=== PATIENT | male | born 1955 | race Caucasian/White ===

== ENCOUNTER 2019-06-04 08:58 | Day surgery (SDC) | payer BC ==
[2019-05-31 15:08] VITALS: BMI 30.4
[~2019-06-04 08:58] MED LIST: LACTATED RINGERS 1,000 ML IV SCH
[2019-06-04 09:15] VITALS: TEMP 98.3
[2019-06-04] MEDS ORDERED: LIDOCAINE 1% 20 ML VIAL (10MG/ML) FOR IV START INTRADERMA ONE (09:17)
[2019-06-04] MEDS ORDERED: PROPOFOL 10 MG/ML 20 ML VIAL IV ONE (09:59)
--- NOTE | 2019-06-04 10:18 | P.PCN ---
Date of Procedure: 06/04/19 Procedure(s) Performed: BRIEF HISTORY: Patient is a 64-year-old pleasant white male, scheduled for an elective colonoscopy as a part of evaluation of Hemoccult-positive stool and family history of colon cancer. Father was diagnosed with colon cancer at age 72. PROCEDURE PERFORMED: Colonoscopy. PREOPERATIVE DIAGNOSIS: Screening for colon cancer/family history of colon cancer. IV sedation per Anesthesia. PROCEDURE: After informed consent was obtained, the patient, was brought into the endoscopy unit. IV sedation was administered by Anesthesia under continuous monitoring. Digital rectal examination was normal. Initially the Olympus CF-160 flexible video colonoscope was then inserted in the rectum, gradually advanced into the cecum without any difficulty. Careful examination was performed as the scope was gradually being withdrawn. Ileocecal valve and the appendiceal orifice were visualized and appeared normal. Prep was excellent. Mucosa of the cecum, ascending colon, transverse colon, descending colon, sigmoid colon, and rectum appeared normal. Retroflexion was performed in the rectum and no lesions were seen. The patient tolerated the procedure well. IMPRESSION: Normal-appearing colon from rectum to cecum with no evidence of colorectal neoplasia Scattered sigmoid diverticulosis . RECOMMENDATIONS: Findings of this examination were discussed with the patient as well as his family. He was advised to have a repeat screening colonoscopy every 5 years because of the family history of colon cancer..
[2019-06-04 10:51] VITALS: BP 144/94; PULSE 63; RESP 18
== END 2019-06-04 11:00 | disposition home or self-care (01) ==
LOC: ORWHC2ENDO 08:58
PROVIDERS: ATTEND Internal Medicine Gastroenterology
DX: Z12.11 Encounter for screening for malignant neoplasm of colon (principal); Z80.0 Family history of malignant neoplasm of digestive organs; K57.30 Diverticulosis of large intestine without perforation or abscess without bleeding
CPT/HCPCS: J2704; G0105

== ENCOUNTER → 2020-04-10 | Outpatient (CLI) | payer BC ==
--- NOTE | 2020-04-10 13:04 | XR ---
EXAMINATION TYPE: XR finger RT DATE OF EXAM: 04/10/2020 COMPARISON: NONE HISTORY: Right index finger injury 6 days ago TECHNIQUE: 2 views of the right index finger were obtained FINDINGS: There is diffuse circumferential soft tissue swelling of the right index finger without oss eous laceration. Dorsal osseous pleural fluid change is seen of the proximal and distal interphalange al joints. No suspicious radiopaque foreign body identified. No acute fracture seen. IMPRESSION: Circumferential soft tissue swelling of the second digit and mild degenerative change of the dorsal distal and proximal interphalangeal joints. No osseous laceration or acute fracture.
== END | disposition home or self-care (01) ==
LOC: RADXRYALE 11:22
PROVIDERS: ATTEND Family Medicine
DX: M79.89 Other specified soft tissue disorders (principal); M19.041 Primary osteoarthritis, right hand

== ENCOUNTER → 2022-05-10 | Outpatient (CLI) | payer BC ==
--- NOTE | 2022-05-10 10:27 | XR ---
EXAMINATION TYPE: XR hand complete RT DATE OF EXAM: 05/10/2022 CLINICAL HISTORY: Pain worse in the right first finger. TECHNIQUE: Frontal, lateral and oblique images of the right hand are obtained. COMPARISON: None. FINDINGS: There is no acute fracture/dislocation evident in the right hand. Fhzj-vr-mgkzdbvu narrowi ng first metatarsophalangeal joint and mild spurring. Easp-eh-yxtulava narrowing third and fourth PIP joints with mild narrowing and mild to moderate spurring second PIP joint. Mild to moderate diffuse soft tissue swelling throughout the proximal fingers greatest in the second finger. IMPRESSION: As above.
== END | disposition home or self-care (01) ==
LOC: RADXRYALE 09:56
PROVIDERS: ATTEND Family Medicine
DX: S60.551A Superficial foreign body of right hand, initial encounter (principal); M13.0 Polyarthritis, unspecified; X58.XXXA Exposure to other specified factors, initial encounter

== ENCOUNTER → 2022-07-01 | Outpatient (CLI) | payer BC ==
[2022-07-01 15:11] LABS: African American GFR (CKD) >90 (>60 ml/min/1.73 sqM); Blood Urea Nitrogen 18 mg/dL (9-20); Non-African American GFR(CKD) >90 (>60 ml/min/1.73 sqM)
--- NOTE | 2022-07-02 06:48 | CT ---
EXAMINATION TYPE: CT abdomen pelvis w con DATE OF EXAM: 07/01/2022 COMPARISON: None. HISTORY: mid to lower left abdominal pain. CT DLP: 1491.60 mGycm, Automated Exposure Control for Dose Reduction was Utilized. CONTRAST: CT scan of the abdomen and pelvis is performed with oral and with IV Contrast, patient injected with 100 mL of Isovue 300. FINDINGS: LUNG BASES: No significant abnormality is appreciated. LIVER/GB: Somewhat contracted gallbladder. No suspicious biliary dilatation. PANCREAS: No significant abnormality is seen. SPLEEN: No significant abnormality is seen. ADRENALS: No significant abnormality is seen. KIDNEYS: Symmetric cortical medullary uptake and excretion without hydronephrosis seen bilaterally. BOWEL: Oral contrast reaches level of rectum. There is no suspicious small or large bowel dilatation. A few diverticula left lower quadrant near junction of left and sigmoid colon. No significant surrou nding fat stranding to suggest acute diverticulitis. PROSTATE/SEMINAL VESICLES: Normal size prostate. Scattered bilateral pelvic phleboliths. LYMPH NODES: No greater than 1cm abdominal or pelvic lymph nodes are appreciated. OSSEOUS STRUCTURES: There is S-shaped scoliosis. Grade 1 anterolisthesis L4 on L5 with moderate to ad vanced disc space narrowing. Moderate disc space narrowing with vacuum disc phenomenon L5-S1 level. OTHER: Prominent noncalcified plaque in the SMA causes significant stenosis for reference coronal jacklyn ge 39 with 90% stenosis felt present. Findings corresponds to sagittal image 68. IMPRESSION: Some distal colonic diverticula. No CT evidence for acute diverticulitis. Focal prominent noncalcified plaque in the SMA causing significant stenosis/near complete occlusion estimated near 9 0%. Further workup and treatment is advised. Advised vascular surgical referral.
== END | disposition home or self-care (01) ==
LOC: RADCTMAIN 14:20
PROVIDERS: ATTEND Family Medicine
DX: R10.32 Left lower quadrant pain (principal)
CPT/HCPCS: 82565; 84520; 74177; 36415; Q9967

== ENCOUNTER → 2022-07-23 | Outpatient (CLI) | payer BC ==
--- NOTE | 2022-07-23 10:43 | CT ---
EXAMINATION TYPE: CT angio abdomen pelvis CT DLP: 1125.9 mGycm, Automated exposure control for dose reduction was used. DATE OF EXAM: 07/23/2022 10:31 AM COMPARISON: CT abdomen and pelvis 07/01/2022. 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 Patient was given Isovue 370, 100 cc intravenously. 3-D r econstructed images and maximum intensity projection images were obtained of the abdomen, pelvis, and lower extremities. FINDINGS: CTA Abdomen and pelvis: The abdominal aorta does not demonstrate aneurysmal dilatation. Mild atheros clerotic plaquing is identified within the abdominal aorta. The origins of the celiac axis, single b ilateral renal arteries, and MARLIN are widely patent. Prominent noncalcified plaque in the SMA origin e xtending out at least 2.2 cm with 90% stenosis. This extends to the origin of the first jejunal branc h. The iliac vessels are normal in morphology. Mild atherosclerotic plaquing is identified in the co mmon iliac arteries. VISCERA: The liver, spleen, adrenal glands, kidneys, pancreas, and gallbladder are not optimally enha nced due the arterial phase utilized. LIVER: Subcentimeter hypodense foci within the right hepatic lobe are too small to characterize but l ikely represent cysts. GALLBLADDER AND BILE DUCTS: Unremarkable. PANCREAS: Unremarkable. SPLEEN: Unremarkable. ADRENAL GLANDS: Unremarkable. KIDNEYS AND URETERS: No evidence of hydronephrosis or renal calculus. The kidneys enhance symmetrical ly. PELVIS BLADDER: Incompletely distended but grossly unremarkable. REPRODUCTIVE: Prominent prostate gland measuring 4.9 cm in transverse dimension. ABDOMEN & PELVIS STOMACH AND BOWEL: Stomach and duodenum are unremarkable. Scattered colonic diverticulosis without ev idence for acute diverticulitis. The appendix is within normal limits. No evidence of bowel obstructi on. No pneumatosis or portal venous gas. PERITONEUM: No evidence of pneumoperitoneum or free fluid. MUSCULOSKELETAL: No acute osseous abnormalities. No aggressive osseous lesions. S-shaped scoliosis. G rade 1 anterolisthesis of L4 on L5 with moderate to advanced disc space narrowing. Moderate disc spac e narrowing with vacuum disc phenomenon at L5-S1. Remote injury to the right L2 transverse process. LYMPH NODES: No gross evidence for lymphadenopathy. SOFT TISSUE/ABDOMINAL WALL: Unremarkable Lower chest: Posterior subsegmental dependent atelectasis bilaterally. Coronary arterial calcificatio ns. IMPRESSION 1. No evidence of vascular occlusion. 2. Redemonstration of focal prominent noncalcified plaque in the proximal SMA causing 90% stenosis as described above. 3. Colon diverticulosis without evidence for acute diverticulitis.
== END | disposition home or self-care (01) ==
LOC: RADCTMAIN 08:55
PROVIDERS: ATTEND Surgery
DX: K57.30 Diverticulosis of large intestine without perforation or abscess without bleeding (principal)
CPT/HCPCS: 82565; 84520; 36415; 74174; Q9967

== ENCOUNTER → 2024-05-25 | Outpatient (CLI) | payer BC ==
--- NOTE | 2024-05-25 11:02 | XR ---
EXAMINATION TYPE: XR cervical spine comp DATE OF EXAM: 05/25/2024 CLINICAL HISTORY: pain COMPARISON: NONE TECHNIQUE: Frontal, lateral, oblique, swimmers, and open mouth view of the cervical spine are obtaine d. FINDINGS: The cervical spine is visualized in its entirety from C1 thru the top of T1 level. It is s atisfactory in alignment without evidence of acute fracture or dislocation. The pre-vertebral soft t issue appears within normal limits. Moderate to severe degenerative disc space narrowing C4-5, C5-6 a nd C6-7. Anterolisthesis of 2 mm C4 on C5. Mild to moderate facet joint arthropathy. The C1-C2 articu lation is unremarkable on the open mouth view. Left-sided C4-5 neural foraminal encroachment as well as bilateral C5-6 foraminal encroachment. IMPRESSION: As above
== END | disposition home or self-care (01) ==
LOC: RADXRYALE 08:57
PROVIDERS: ATTEND Physician Assistant Medical
DX: M50.30 Other cervical disc degeneration, unspecified cervical region (principal)
CPT/HCPCS: 72050

== ENCOUNTER → 2024-07-23 | Outpatient (CLI) | payer BC ==
--- NOTE | 2024-07-23 10:57 | MR ---
EXAMINATION TYPE: MR cervical spine wo con DATE OF EXAM: 07/23/2024 9:07 AM CLINICAL INDICATION: Male, 69 years old with history of M47.22,M50.13, M54.2, R20.2; PHH, Neck pain i nto rt arm/fingers COMPARISON: . TECHNIQUE: Multi planar, multi sequence imaging was performed utilizing: T1-weighted, T2-weighted, an d turbo inversion recovery imaging of the cervical spine. IV Contrast: cc (none if empty) FINDINGS: Alignment: The cervical vertebral bodies have preserved heights. Alignment is within normal limits gi greer patient positioning. Bones: Scattered Modic endplate changes with osteophytes and disc space narrowing. Multilevel degener ative disc disease is noted and most pronounced at the C5-C7 vertebral levels. Cord: The spinal cord is unremarkable with regards to their signal intensity and morphology. Discs: Intervertebral disc signal is maintained. C2-C3: No significant disc pathology. The spinal canal is patent. Bilateral facet and uncovertebral joint arthropathy are present with mild to moderate bilateral neural foraminal stenosis. C3-C4: No significant disc pathology. The spinal canal is patent. Bilateral facet and uncovertebral joint arthropathy are present with mild to moderate bilateral neural foraminal stenosis. C4-C5: A disc osteophyte complex is present with moderate spinal canal stenosis. Bilateral facet and uncovertebral joint arthropathy are present with mild to moderate bilateral neural foraminal stenosi s. C5-C6: A disc osteophyte complex is present with moderate spinal canal stenosis. Bilateral facet and uncovertebral joint arthropathy are present with moderate to severe bilateral neural foraminal steno sis. C6-C7: A disc osteophyte complex is present with moderate spinal canal stenosis. Bilateral facet and uncovertebral joint arthropathy are present with moderate to severe right and mild to moderate left neural foraminal stenosis. C7-T1: No significant disc pathology. The spinal canal is patent. No neural foraminal stenosis. Other: None. IMPRESSION: 1. No evidence for disc herniation. Multilevel moderate neural spinal canal stenosis worse at the low er endplate of C4-C6. 2. Multilevel disc degeneration with associated osteoarthritic changes worse at C5-C6 with moderate t o severe bilateral neural foraminal stenosis and moderate spondylosis. C6-C7 with moderate to severe right and mild to moderate left neural foraminal stenosis.. [facility], , 07/23/2024 10:55 AM
== END | disposition home or self-care (01) ==
LOC: RADMRIMAIN 07:54
PROVIDERS: ATTEND Family Medicine
DX: M47.22 Other spondylosis with radiculopathy, cervical region (principal); M50.13 Cervical disc disorder with radiculopathy, cervicothoracic region; M48.02 Spinal stenosis, cervical region; M99.71 Connective tissue and disc stenosis of intervertebral foramina of cervical region
CPT/HCPCS: 72141

== ENCOUNTER → 2024-11-25 | Day surgery (SDC) | payer BC ==
[~2024-11-25] MED LIST changes: +ALPRAZolam 0.25 MG TAB PO PRN; +ASPIRIN 81 MG PO SCH; +ATORVASTATIN 40 MG TAB PO SCH; +ATROPINE SULFATE 0.1 MG/ML 10ML SYRINGE IV PRN; +CLOPIDOGREL 75 MG TAB PO SCH; -LACTATED RINGERS 1,000 ML IV SCH; +LOSARTAN 50 MG TAB PO SCH; +MAG HYDROX/AL HYDROX/SIMETH 30 ML CUP PO PRN; +NITROGLYCERIN SL TABS 0.4 MG TAB SUBLINGUAL PRN; +PANTOPRAZOLE 40 MG TABLET PO SCH; +RX INFO: IV CONTRAST WAS GIVEN 1 EACH MISC MISCELLANE PRN; +SODIUM CHLORIDE 0.9% 1,000 ML in EMPTY BAG 1 BAG IV SCH; +ZOLPIDEM 5 MG TAB PO PRN
[2024-11-25 06:24] VITALS: TEMP 98.7
[2024-11-25] MEDS: SODIUM CHLORIDE 0.9% 1,000 ML in EMPTY BAG 1 BAG IV SCH (06:25)
[2024-11-25] MEDS: ASPIRIN 325 MG TAB PO STA (06:32)
[2024-11-25] MEDS: ATORVASTATIN 80 MG TAB PO STA (06:32)
[2024-11-25] MEDS: ALPRAZolam 0.5 MG TAB PO PRN (06:34)
[2024-11-25] MEDS: HEPARIN SODIUM,PORCINE 10,000 UNIT in SODIUM CHLORIDE 0.9% 1,000 ML IRRIGATION PRN (07:39)
[2024-11-25] MEDS: SODIUM CHLORIDE 0.9% 1,000 ML IV ONE (07:39)
[2024-11-25] MEDS: fentaNYL (PF) 50 MCG/1 ML VIAL IVP ONE (07:39)
[2024-11-25] MEDS: HEPARIN SODIUM,PORCINE (1 ML) 2,500 UNIT in SODIUM CHLORIDE 0.9% 250 ML IRRIGATION PRN (07:39)
[2024-11-25] MEDS: VERAPAMIL SYRINGE (5 MG/10 ML) INTRAARTER ONE (07:40)
[2024-11-25] MEDS: LIDOCAINE 2% (PF) 20 MG/ML 10 ML AMP SQ ONE (07:40)
[2024-11-25] MEDS: HEPARIN SODIUM 1,000 UN/ML (10ML VL) IVP ONE ×2 (07:44→07:54)
[2024-11-25] MEDS: CLOPIDOGREL 75 MG TAB PO ONE (07:55)
[2024-11-25] MEDS: NITROGLYCERIN 1000MCG/10ML SYRINGE INTRACORON ONE (08:13)
[2024-11-25] MEDS: IOPAMIDOL-370 100ML BTL INJ ONE (08:46)
--- NOTE | 2024-11-25 09:10 | P.CARDCATH ---
Date of Procedure: 11/25/24 Description of Procedure: Cardiac Catheterization: The patient is a 69-year-old male with known history of hypertension hyperlipidemia, abnormal calcium score who has been complaining of exertional chest comfort and had an abnormal MPI. Recommendations were made regarding cardiac catheterization, the risks and the complications were discussed with the patient who is in full understanding and agreement. Procedure Description: Patient was brought to laborer drying department in fasting semi-sedated state after receiving Fentanyl and Benadryl achieiving moderate conscious sedated state. Using Xylocaine Anesthesia and modified Seldinger technique, a 6-Jordanian sheath was introduced in the right radial artery . Subsequently, selective coronary angiography was performed using a 5-Jordanian 3.5 bend Arnaud catheter. Multiple views of the coronary artery including hemiaxial views were obtained. The 5 Jordanian pigtail catheter was used to cross the aortic valve and LVEDP was calculated. PCI: After removing the catheter a 6 Jordanian AL 0.75 guiding catheter was introduced and the right coronary ostium was cannulated. Subsequently a 0.014 whisper J- wire, a Corsair microcatheter and a 6 Jordanian guide liner were introduced. With the help of the microcatheter the whisper J-wire was able to cross the lesion and positioned distally. Subsequently the Corsair was advanced and the wire was exchanged to a 0.014 BMW J-wire. After removing the Corsair catheter a 2.25 x 12 mm trek balloon was advanced and multiple inflation at 10 dharmesh were done. After removing the balloon a [place] eye IVUS catheter was introduced and revealed mild calcification of the vessel with a lumen measuring 4 to 4.3 mm in diameter. After removing the catheter as 4.0 x 38 mm Xience sapna point stent was advanced and deployed at 16 dharmesh. After removing the balloon another 4.0 x 12 mm Xience sapna point stent was deployed proximal to the first 1 at 16 dharmesh. Repeat IVUS imaging was performed and revealed good apposition of the stent distally with mild under deployment in the midsegment. At that time a 4.0 x 20 mm NC trek balloon was advanced and 2 inflations at 12 dharmesh were done. After the last inflation and after appropriate weight the wire was removed images were obtained and revealed stable successful stenting. Following that, catheter and sheath were removed. Hemostasis was obtained with deployment of vascular band . There was no immediate complication. Patient was returned to room in stable condition. Of note, the patient received a total of 7000 units of intravenous heparin as well as intra-arterial verapamil. He received an oral loading dose of clopidogrel, his ACT was monitored. He had chest discomfort with the inflations that resolved at the end of the procedure. Findings: Fluoroscopy: Calcifications of the coronary arteries were noted. Left main: This is a large size vessel, bifurcating into LAD and left ci rcumflex, left main has no obstructive disease LAD: This is a large size vessel, reaching to the apex with a wraparound apex segment, giving rise to 2 small diagonal branch. The proximal LAD has 20 to 30% plaque the mid LAD has intimal disease of 20 to 30% without any high-grade stenosis Left circumflex: This is a large nondominant vessel giving rise to a large proximal obtuse marginal branch. The left circumflex has minimal intimal disease in the obtuse marginal branch of 10 to 20% with no high-grade stenosis RCA: This is a large vessel totally occluded in the midsegment with minimal antegrade flow. There is contralateral collaterals from the septal care transitions manager to the LAD to the PDA and the PLV. Left Ventriculogram: Not performed Hemodynamics: There was no gradient across aortic valve, LVEDP was 8-10 mmHg Conclusion: 1. Calcified coronary arteries 2. 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 Mild disease in the LAD and left circumflex 4. Successful stenting of the mid RCA with reduction of stenosis from 100% to 0% with IVUS imaging and AGUSTIN-3 flow. There was moderate plaque distal to the stent and proximal to it and it was felt that medical therapy would be the best option at this time. Recommendations: The patient will continue on aspirin and clopidogrel without any interruption for 6 months in addition to aggressive coronary risks modification, maintaining LDL below 70 mg/dL. The findings and the recommendations were discussed with the patient and the family and they were in full understanding and agreement. Duration of sedation is 56 minutes.
[2024-11-25] MEDS: IV FLUID CONTINUATION 1,000 ML IV ONE (10:00)
[2024-11-25 14:54] VITALS: RESP 16
[2024-11-25 15:00] VITALS: BP 122/73; PULSE 74
== END | disposition home or self-care (01) ==
LOC: CATHCVL 05:58
PROVIDERS: ATTEND Internal Medicine Interventional Cardiology
DX: I25.10 Atherosclerotic heart disease of native coronary artery without angina pectoris (principal); I25.84 Coronary atherosclerosis due to calcified coronary lesion; I25.82 Chronic total occlusion of coronary artery; I10 Essential (primary) hypertension; E78.2 Mixed hyperlipidemia; G47.33 Obstructive sleep apnea (adult) (pediatric); I73.9 Peripheral vascular disease, unspecified; I08.1 Rheumatic disorders of both mitral and tricuspid valves; Z79.02 Long term (current) use of antithrombotics/antiplatelets; Z79.899 Other long term (current) drug therapy
CPT/HCPCS: 92978; 93458; C9600; C1769 ×4; C1894; C1887 ×2; C1725 ×2; C1753; C1874 ×2; C1751; J1644 ×3; J2003; Q9967; J3010; J2305